=== PATIENT | male | born 1990 | race Caucasian/White ===

== ENCOUNTER 2017-08-23 22:32 | Emergency (ER) | payer MEDICAID, SELFPAY | END 2017-08-24 00:50 | disposition left against medical advice (07) | PROVIDERS: Emergency Provider Emergency Medicine; Visit Provider Emergency Medicine | DX: L02.414 Cutaneous abscess of left upper limb (principal); F17.210 Nicotine dependence, cigarettes, uncomplicated | CPT/HCPCS: 10061; 80053; 83605; 85025; 87040; 87070; 87077; 87186; 99211; 99284; J3370 ==